=== PATIENT | male | born 1960 | race Caucasian/White ===

== ENCOUNTER → 2017-01-15 | Outpatient (REF) ==
--- NOTE | 2017-01-15 13:30 | REP ---
Clinical: Degenerative pain. Technique: AP, lateral, open mouth views of the cervical spine. Findings: No acute fracture / compression injury appreciated. 2 mm of chronic anterolisthesis at the C4-5 level noted. Advanced degenerative disc osteophyte complex noted at the C5-6 and C6-7 levels including osteophytosis, endplate sclerosis and disc space narrowing. Impression: Focal advanced degenerative disc osteophyte complex and C5-6 and C6-7. Signed by Ivan Caldwell MD 01/15/2017 01:20 P
== END ==
LOC: M SMT 13:03
PROVIDERS: ATTEND Internal Medicine
DX: Z02.1 Encounter for pre-employment examination (principal)

== ENCOUNTER 2022-12-05 07:57 | Day surgery (SDC) | payer MEDICARE ==
[~2022-12-05] VITALS: Ht 167.6 cm; Wt 79.8 kg
[~2022-12-05 07:57] MED LIST: AMLO2.5T3 PO; ASCO500C3 PO; ASPI81TA26 PO; ATOR80TA59 PO; BSS IRRIG/VANCO(10MG)/TOBRA(5MG)/EPINEPH(1:1000-0.5CC)500ML BAG-ORONLY IR ONE; CEFUROXIME 1MG/0.1ML INTRACAMERAL INJ As Ordered ONE; CLAR10CA3 PO; CLOP75TA2 PO; DOXA1TAB41 PO; EZET10TA21 PO; HYDR12.55 PO; INSUH10VL SQ; LEVO75TA4 PO; LIDOCAINE 1% SDV 5ML VIAL As Ordered ONE; LIDOCAINE 3.5 % 1ML OPHTH TOPICAL GEL OU ONE; MIDAZOLAM INJ 2MG/2ML VIAL As Ordered ONE; MYCO1TAB PO; OFLOXACIN 0.3 % (OCUFLOX) OPTH SOL 5ML OS ONE; PHENYLEPHRINE 10% OPHTH SOL 5ML OS PRN; PROP40TA62 PO; SIRO1TAB3 PO; TACR0.5C3 PO; THERTAB52 PO; fentaNYL 100 MCG/2 ML INJECTION As Ordered ONE
[2022-12-05] MEDS: TROPICAMIDE 1% OPHTH SOLN 15ML OS SCH ×2 (09:08→09:09)
[2022-12-05] MEDS: CYCLOPENTOLATE 1% OPHTH SOLN 2ML BTL OS SCH ×2 (09:08→09:09)
[2022-12-05] MEDS: PHENYLEPHRINE 2.5% OPHTH SOL 2ML OS SCH ×2 (09:08→09:09)
[2022-12-05 10:10] VITALS: BP 155/73
== END 2022-12-05 10:29 | disposition home or self-care (01) ==
LOC: M SDC 07:57
PROVIDERS: ATTEND Ophthalmology
DX: H25.12 Age-related nuclear cataract, left eye (principal); K21.9 Gastro-esophageal reflux disease without esophagitis; E11.9 Type 2 diabetes mellitus without complications; I10 Essential (primary) hypertension; E78.5 Hyperlipidemia, unspecified; E03.9 Hypothyroidism, unspecified; Z87.891 Personal history of nicotine dependence; Z98.61 Coronary angioplasty status; Z94.0 Kidney transplant status; Z79.02 Long term (current) use of antithrombotics/antiplatelets; Z79.82 Long term (current) use of aspirin; Z79.4 Long term (current) use of insulin; Z79.899 Other long term (current) drug therapy
CPT/HCPCS: 66984; J0697; J2250; J3010; V2632

== ENCOUNTER 2023-05-08 05:58 | Day surgery (SDC) | payer MEDICARE ==
[~2023-05-08] VITALS: Ht 170.2 cm; Wt 78.7 kg
[~2023-05-08 05:58] MED LIST changes: -BSS IRRIG/VANCO(10MG)/TOBRA(5MG)/EPINEPH(1:1000-0.5CC)500ML BAG-ORONLY IR ONE; -CEFUROXIME 1MG/0.1ML INTRACAMERAL INJ As Ordered ONE; -LIDOCAINE 1% SDV 5ML VIAL As Ordered ONE; -LIDOCAINE 3.5 % 1ML OPHTH TOPICAL GEL OU ONE; -MIDAZOLAM INJ 2MG/2ML VIAL As Ordered ONE; -OFLOXACIN 0.3 % (OCUFLOX) OPTH SOL 5ML OS ONE; -PHENYLEPHRINE 10% OPHTH SOL 5ML OS PRN; -fentaNYL 100 MCG/2 ML INJECTION As Ordered ONE
[2023-05-08] MEDS ORDERED: BSS IRRIG/VANCO(10MG)/TOBRA(5MG)/EPINEPH(1:1000-0.5CC)500ML BAG-ORONLY IR ONE (06:00)
[2023-05-08] MEDS ORDERED: PHENYLEPHRINE 2.5% OPHTH SOL 2ML OD SCH (06:00)
[2023-05-08] MEDS ORDERED: LIDOCAINE 3.5 % 1ML OPHTH TOPICAL GEL OU ONE (06:00)
[2023-05-08] MEDS ORDERED: TROPICAMIDE 1% OPHTH SOLN 15ML OD SCH (06:00)
[2023-05-08] MEDS ORDERED: OFLOXACIN 0.3 % (OCUFLOX) OPTH SOL 5ML OD ONE (06:00)
[2023-05-08] MEDS ORDERED: PHENYLEPHRINE 10% OPHTH SOL 5ML OD PRN (06:00)
[2023-05-08] MEDS ORDERED: CYCLOPENTOLATE 1% OPHTH SOLN 2ML BTL OD SCH (06:00)
[2023-05-08] MEDS ORDERED: LIDOCAINE 1% SDV 5ML VIAL As Ordered ONE (06:40)
[2023-05-08] MEDS ORDERED: CEFUROXIME 1MG/0.1ML INTRACAMERAL INJ As Ordered ONE (06:41)
[2023-05-08] MEDS ORDERED: MIDAZOLAM INJ 2MG/2ML VIAL As Ordered ONE (07:23)
[2023-05-08] MEDS ORDERED: fentaNYL 100 MCG/2 ML INJECTION As Ordered ONE (07:23)
[2023-05-08 07:57] VITALS: BP 174/77; TEMP 96.7; O2SAT 95
== END 2023-05-08 08:23 | disposition home or self-care (01) ==
LOC: M SDC 05:58
PROVIDERS: ATTEND Ophthalmology
DX: E10.36 Type 1 diabetes mellitus with diabetic cataract (principal); H25.11 Age-related nuclear cataract, right eye; I10 Essential (primary) hypertension; E78.00 Pure hypercholesterolemia, unspecified; E03.9 Hypothyroidism, unspecified; Z79.899 Other long term (current) drug therapy; Z79.82 Long term (current) use of aspirin; Z79.890 Hormone replacement therapy; Z95.1 Presence of aortocoronary bypass graft; Z95.5 Presence of coronary angioplasty implant and graft
CPT/HCPCS: 66984; J0697; J2250; J3010; V2632